=== PATIENT | female | born 1990 | race Caucasian/White ===

== ENCOUNTER 2016-11-17 22:19 | Emergency (ER) | payer OTHER ==
[~2016-11-17] VITALS: Ht 149.9 cm; Wt 63.6 kg
[2016-11-17] MEDS ORDERED: ZYRT10CA PO (22:29)
[2016-11-18] MEDS ORDERED: NORCO, ANEXSIA 5/325MG TABLET (HYDROcodone/ACETAMINOPHEN) PO ONE
[2016-11-18] MEDS ORDERED: NORCO 5/325MG TABLET (BULK FOR ED) PO ONE (00:45)
[2016-11-18 01:00] VITALS: BP 122/76
--- NOTE | 2016-11-18 07:44 | REP ---
Clinical: Trauma. Technique: AP, lateral, bilateral oblique views of the left ankle. Findings: Soft tissue swelling suggests inversion injury. No acute fracture dislocation. Joint spaces and ankle mortise are intact. Impression: Soft-tissue swelling. No acute fracture or dislocation. Signed by Daniel Hardy MD 11/18/2016 07:36 A
== END 2016-11-18 01:00 | disposition home or self-care (01) ==
LOC: M ED 22:19
DX: S93.402A Sprain of unspecified ligament of left ankle, initial encounter (principal); V03.10XA Pedestrian on foot injured in collision with car, pick-up truck or van in traffic accident, initial encounter; Y92.410 Unspecified street and highway as the place of occurrence of the external cause; Y93.01 Activity, walking, marching and hiking; Y99.8 Other external cause status; F41.9 Anxiety disorder, unspecified; Z79.899 Other long term (current) drug therapy